=== PATIENT | male | born 1985 | race Caucasian/White ===

== ENCOUNTER 2019-01-31 14:47 | Emergency (ER) | payer MEDICAID ==
[~2019-01-31] VITALS: Ht 170.2 cm; Wt 76.7 kg
--- NOTE | 2019-01-31 14:58 | NUR ---
PATIENT AMBULATED TO BED 5 AT THIS TIME.
[2019-01-31 15:04] VITALS: BP 141/73
--- NOTE | 2019-01-31 15:04 | NUR ---
PT ARRVIED TO ED C/O WITHDRAWL SX X 2DAYS. PT RATES PAIN 8/10 AND DESCRIBES IT SORENESS, AND ACHING. PT IS JITTERY AND SHAKEY ARMS. A & O X 4. PERRLA 3MM. LAST USE OF OPIOID WAS 2 DAYS AGO. VSS. STEADY GAIT. GIRLFRIEND AT BEDSIDE. NO RESP DISTRESS NOTED. PMH: SUBSTANCE ABUSE. NKA.
[2019-01-31] MEDS ORDERED: ONDANSETRON 4 MG ODT PO ONE (15:35)
[2019-01-31] MEDS ORDERED: KETOROLAC 60 MG/2 ML VIAL IM ONE (15:35)
[2019-01-31 16:09] VITALS: BP 135/82
== END 2019-01-31 16:10 | disposition home or self-care (01) ==
LOC: MED 14:47
DX: F11.23 Opioid dependence with withdrawal (principal)
CPT/HCPCS: 96372; 99283; J1885; Q0162

== ENCOUNTER 2019-04-10 22:45 | Emergency (ER) | payer MEDICAID ==
[~2019-04-10] VITALS: Ht 167.6 cm; Wt 83.0 kg
[2019-04-10 22:52] VITALS: BP 124/75
--- NOTE | 2019-04-10 23:10 | NUR ---
BREAKING PRIMARY NURSE, PT AMBULATORY TO ROOM 3. PT C/O TICK BITE EARLIER THIS MORNING. PT STATES WORKING IN [facility]. PT STATES FRIEND WAS BITEN BY TICK. PT STATES NOTICING BUMP, REDNESS AND SWELLING TO LOWER LEG WHEN HOME FROM WORK. PT DID NOT SEE TICK BITE HIM OR REMOVE TICK. PT APPEAERS TO BE IN NO DISTRESS. PT VSS. WILL CONTINUE TO MONITOR.
--- NOTE | 2019-04-10 23:47 | NUR ---
PATIENT ALERT AND ORIENTED, BREATHING EVEN AND UNLABORED
[2019-04-10] MEDS ORDERED: DOXYCYCLINE 100 MG CAP PO STA (23:56)
--- NOTE | 2019-04-11 00:01 | NUR ---
Dheeraj ba in [facility] - 04/11/19 at 0109 by MEDJJ PATIENT LEFT FACILITY WITH
[2019-04-11 00:53] VITALS: BP 124/75
--- NOTE | 2019-04-11 00:53 | NUR ---
Patient discharged with v/s stable. Written and verbal after care instructions ABOUT WOOD TICK BITES given and explained. Patient alert, oriented and verbalized understanding of instructions. Ambulatory with steady gait. All questions addressed prior to discharge. ID band removed. Patient advised to follow up with PMD. Rx of BACITRACIN given. Patient educated on indication of medication including possible reaction and side effects. Opportunity to ask questions provided and answered.
--- NOTE | 2019-04-11 01:00 | NUR ---
PATIENT LEFT FACILITY WITH
== END 2019-04-11 00:53 | disposition home or self-care (01) ==
LOC: MED 22:45
DX: S80.862A Insect bite (nonvenomous), left lower leg, initial encounter (principal)
CPT/HCPCS: 99283